=== PATIENT | female | born 1990 | race Caucasian/White ===

== ENCOUNTER 2016-12-24 12:04 | Emergency (ER) | payer MEDICAID ==
[~2016-12-24] VITALS: Wt 62.0 kg
[2016-12-24] MEDS ORDERED: GUAI473L22 PO (14:14)
[2016-12-24] MEDS ORDERED: ACET500C5 PO (14:14)
[2016-12-24] MEDS ORDERED: IBUP400T22 PO (14:14)
[2016-12-24] MEDS ORDERED: SODI126M NASAL (14:14)
--- NOTE | 2016-12-24 14:21 | ERD ---
ER Documentation Chief Complaint Date/Time DATE: 12/24/16 TIME: 14:16 Chief Complaint COUGH AND FEVER AND SWELLING OF EYES WITH NO DISTRESS. HPI 26-year-old female complaining of cough or fever 4 days. Her temperature was high as 101.7 at home. She did not have any more fever since last night. Cough is nonproductive. Patient reports feeling weak with decreased appetite. She feels nauseous but no vomiting or diarrhea. Patient also complains of swelling and pain in the left eye, especially with certain movements. Denies shortness of breath. Denies headache or neck pain. ROS All systems reviewed and are negative except as per history of present illness. Medications Home Meds Active Scripts Guaifenesin-Codeine Phosphate* (Guaifenesin* AC Cough Syrup) 473 Ml Liquid, 10 ML PO Q4H Y for COUGH, #120 ML Prov:PARVIZ PIERSON. 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 HIGH DENSITY [employer]AL[employer] OPERATOR 12/24/16 Ibuprofen* (Motrin*) 400 Mg Tab, 400 MG PO Q6H Y for PAIN AND OR ELEVATED TEMP, #30 TAB Prov:PARVIZ PIERSON. HIGH DENSITY [employer]AL[employer] OPERATOR 12/24/16 PMhx/Soc Medical and Surgical Hx: pt denies Medical Hx History of Surgery: No Anesthesia Reaction: No Hx Neurological Disorder: No Hx Respiratory Disorders: No Hx Cardiac Disorders: No Hx Psychiatric Problems: No Hx Miscellaneous Medical Probl: No Hx Alcohol Use: No Hx Substance Use: No Hx Tobacco Use: No Physical Exam Vitals Vital Signs Date Time Temp Pulse Resp B/P Pulse Ox O2 Delivery O2 Flow Rate FiO2 12/24/16 12:07 98.4 61 20 117/65 98 Physical Exam General impression: Well-developed, well-nourished. Alert, oriented, in no acute distress Head: Normocephalic, atraumatic. Eyes: PERRL, EOM normal. Conjunctiva not injected. Slight puffiness in the left eye, patient reports pain in the left eye when glazing to the upper left and upper right. No pain when look straight up. ENT: Nasal mucosa erythematous and swollen. Oral mucosa and oropharynx are normal. Neck: Supple, nontender. No lymphanopathy. No nuchal rigidity. Respiration: Normal respiratory effort. Lungs clear to auscultate bilaterally. No wheezes, rales or rhonchi. Cardiovascular: Regular rate and rhythm. No murmurs or extra heart sounds. Abdomen: Abdomen normal to inspection. Nontender. No masses or organomegaly. Bowel sounds normal. Neuro: Mental status normal, speech normal. 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 Skin: Normal turgor. No rash or lesions. Psych: Normal mood and affect. Procedures/MDM Well-appearing 26-year-old female presents with cough and fever 4 days. Her fever has since resolved. Patient is afebrile, in no respiratory distress. Lungs are clear to auscultate. I doubt that patient has pneumonia or bronchitis. Patient's symptoms are consistent with a flulike illness, however since her symptom onset is more than 48 hours, no Tamiflu is indicated. Patient is complaining of left eye pain, no sign of conjunctivitis, or periorbital abscess is noted. Patient appears well, stable for discharge and outpatient management. Medical decision making shared with patient and family. Education provided to patient and family. Patient and family expressed understanding of the plan. Medications on discharge: Tylenol, ibuprofen, saline nasal spray, guaifenesin with codeine. Follow-up: Primary care provider in 2-3 days or return to ED if worse. Departure Diagnosis: Primary Impression: Flu-like symptoms Condition: Stable Patient Instructions: Influenza (Adult) Referrals: [facility] YOU HAVE RECEIVED A MEDICAL SCREENING EXAM AND THE RESULTS INDICATE THAT YOU DO NOT HAVE A CONDITION THAT REQUIRES URGENT TREATMENT IN THE EMERGENCY DEPARTMENT. FURTHER EVALUATION AND TREATMENT OF YOUR CONDITION CAN WAIT UNTIL YOU ARE SEEN IN YOUR DOCTORS OFFICE WITHIN THE NEXT 1-2 DAYS. IT IS YOUR RESPONSIBILITY TO MAKE AN APPOINTMENT FOR FOLOW-UP CARE. IF YOU HAVE A PRIMARY DOCTOR --you should call your primary doctor and schedule an appointment IF YOU DO NOT HAVE A PRIMARY DOCTOR YOU CAN CALL OUR PHYSICIAN REFERRAL HOTLINE AT IF YOU CAN NOT AFFORD TO SEE A PHYSICIAN YOU CAN CHOSE FROM THE FOLLOWING [facility] [address] [facility]. [facility] [address] [facility]. [facility] [address] [facility]. [facility] [address] [facility]. [facility] [address] [facility]. [facility] [address] Additional Instructions: Call your primary care doctor TOMORROW for an appointment during the next 2-3 days.See the doctor sooner or return here if your condition worsens before your appointment time. PARVIZ PIERSON. MANASA Dec 24, 2016 14:20
== END 2016-12-24 15:13 | disposition home or self-care (01) ==
LOC: FTE 12:04
DX: R05 Cough (principal); R50.9 Fever, unspecified; R11.0 Nausea; H57.12 Ocular pain, left eye
CPT/HCPCS: 99283